=== PATIENT | female | born 2000 | race Hispanic/Latino ===

== ENCOUNTER 2024-05-05 22:50 | Emergency (ER) | payer SELFPAY ==
[2024-05-05] MEDS ORDERED: HYDROcodone/Acetaminophen 5/325 mg Tablet ONE (23:07)
== END 2024-05-05 23:48 | disposition home or self-care (01) ==
LOC: CSHERS 22:50
DX: G89.18 Other acute postprocedural pain (principal)
CPT/HCPCS: 99283